=== PATIENT | male | born 1955 | race Caucasian/White ===

== ENCOUNTER 2019-11-04 11:03 | Emergency (ER) | payer MEDICARE ==
[~2019-11-04] VITALS: Ht 188 cm; Wt 108.0 kg
[2019-11-04 12:08] LABS: CLARITY,URINE CLOUDY (Clear); COLOR,URINE YELLOW (Yellow); GLUCOSE, URINE NEGATIVE (Neg); KETONES,URINE NEGATIVE (Neg); LEUKOCYTE ESTERASE ,URINE TRACE (Neg); NITRITES, URINE NEGATIVE (Neg); OCCULT BLOOD,URINE LARGE (Neg); PH,URINE 5.5 (4.8-8.0); PROTEIN,URINE 100 mg/dl (Neg); UROBILINOGEN,URINE 0.2 E.U/dL (0.2-1.0)
[2019-11-04 12:17] LABS: UA COLLECTION TYPE CLN CATCH MIDSTREAM
[2019-11-04 12:18] LABS: BACTERIA,URINE 2+ /HPF (Neg); MUCUS STRANDS FEW /LPF (Neg); RBC,URINE TNTC /HPF (0-2); SQUAMOUS EPITHELIAL CELL,UR FEW /LPF (FEW)
[2019-11-04] MEDS ORDERED: normal saline 1000ML IV soln IVB ONE (12:35)
[2019-11-04 13:01] LABS: BASOPHILS # (AUTO) 0.1 X10'3 (0-0.2); EOSINOPHILS # (AUTO) 0.1 X10'3 (0-0.9); EOSINOPHILS % (AUTO) 2.1 % (0-6); HEMATOCRIT 39.8 % (42.0-52.0); HEMOGLOBIN 13.4 g/dl (14.0-17.9); LYMPHOCYTES # (AUTO) 1.7 X10'3 (1.1-4.8); LYMPHOCYTES % (AUTO) 25.3 % (21-51); MEAN CORPUSCULAR HEMOGLOBIN 31.3 PG (27.0-31.0); MEAN CORPUSCULAR HGB CONC 33.7 g/dL (33.0-36.5); MEAN CORPUSCULAR VOLUME 92.8 FL (78-98); MEAN PLATELET VOLUME 8.8 FL (7.4-10.4); MONOCYTES # (AUTO) 0.6 X10'3 (0-0.9); MONOCYTES % (AUTO) 8.2 % (2-12); NEUTROPHILS # (AUTO) 4.4 X10'3 (1.8-7.7); NEUTROPHILS % (AUTO) 63.4 % (42-75); PLATELET COUNT 163 X10'3 (140-440); RED BLOOD COUNT 4.29 X10'6 (4.70-6.10); RED CELL DISTRIBUTION WIDTH 14.5 % (11.5-14.5); WHITE BLOOD COUNT 6.9 X10'3 (4.5-11.0)
[2019-11-04 13:05] LABS: ALANINE AMINOTRANSFERASE 16 U/L (12-78); ALBUMIN 3.5 G/DL (3.4-5.0); ALBUMIN/GLOBULIN RATIO 1.2 (1.1-1.5); ALKALINE PHOSPHATASE 118 IU/L (46-116); ANION GAP 8 (8-16); ASPARTATE AMINO TRANSFERASE 12 U/L (10-37); BILIRUBIN,TOTAL 0.4 MG/DL (0.1-1.0); BLOOD UREA NITROGEN 30 MG/DL (7-18); BUN/CREATININE RATIO 10.7 (5.4-32.0); CALCIUM 9.9 MG/DL (8.5-10.1); CHLORIDE 110 MMOL/L (99-107); GLUCOSE 97 MG/DL (70-104); LIPASE 244 U/L (73-393); POTASSIUM 4.5 MMOL/L (3.5-5.1); SODIUM 141 MMOL/L (135-145); TOTAL CARBON DIOXIDE 22.8 MMOL/L (24-32); TOTAL PROTEIN 6.5 G/DL (6.4-8.2); eGFR 23 ML/MIN
[2019-11-04] MEDS ORDERED: ondansetron/PF 4mg/2ml inj IV PRN (14:10)
[2019-11-04] MEDS ORDERED: magnesium hydroxide 30ml (MOM) UD suspension PO PRN (14:10)
[2019-11-04] MEDS ORDERED: normal saline 1000ml 1,000 ML IV SCH (14:10)
[2019-11-04] MEDS ORDERED: acetaminophen 325mg tablet PO PRN (14:10)
[2019-11-04] MEDS ORDERED: mag hydrox/Alum hydrox/simeth 30ml oral suspension PO PRN (14:10)
[2019-11-04] MEDS ORDERED: LEVO500T89 PO (15:16)
[2019-11-04 15:35] VITALS: BP 157/99
[2019-11-04] MEDS ORDERED: OXYC-145 PO (15:54)
[2019-11-04] MEDS ORDERED: HYDR-4069 PO (15:54)
[2019-11-04] MEDS ORDERED: ALLO300T2 PO (15:54)
[2019-11-04] MEDS ORDERED: AMLO-708 PO (15:54)
== END 2019-11-04 15:37 | disposition home or self-care (01) ==
LOC: ER 11:04 → ED HOLD 14:10 → UNDOADMIN 14:10 → UNDODISIN 17:20
DX: N39.0 Urinary tract infection, site not specified (principal); R31.0 Gross hematuria; I10 Essential (primary) hypertension; Z79.899 Other long term (current) drug therapy
CPT/HCPCS: 36415; 74176; 80053; 81001; 83690; 85025; 87088; 96360; 99284; J7030; 99285; G0378